=== PATIENT | male | born 1935 | race Caucasian/White ===

== ENCOUNTER → 2017-10-30 | Outpatient (CLI) | payer MEDICARE, MEDICAID, SELFPAY | PROVIDERS: Visit Provider Internal Medicine | DX: Z79.01 Long term (current) use of anticoagulants (principal); Z51.81 Encounter for therapeutic drug level monitoring | CPT/HCPCS: 36415; 85610 ==

== ENCOUNTER → 2017-11-18 07:33 | Outpatient (CLI) | payer MEDICARE, MEDICAID, SELFPAY ==
[2017-11-18 08:08] LABS: Activated Partial Thrombo Time 25.3 seconds (23.6-34.0); INR 1.24 (0.9-1.1); Prothrombin Time 13.4 seconds (9.4-11.8)
[2017-11-18 08:12] LABS: Basophils % 0.8 % (0.1-2.0); Eosinophils # 0.5 K/mm3 (0.0-0.4); Eosinophils % 9.2 % (0.1-12.0); Hematocrit 34.2 % (42.0-52.0); Hemoglobin 11.2 g/dL (14.1-18.0); Lymphocytes # 1.2 K/mm3 (0.7-4.5); Lymphocytes % 24.5 K/mm3 (10-50); Mean Corpuscular HGB Conc 32.8 g/dL (31.8-35.4); Mean Corpuscular Hemoglobin 30.7 pg (27.0-31.2); Mean Corpuscular Volume 93.3 fl (80-94); Mean Platelet Volume 9.7 fl (7.4-10.4); Monocytes # 0.3 K/mm3 (0.1-1.0); Monocytes % 5.8 % (1.7-9.3); Neutrophils % 59.8 % (37.0-80.0); Platelet Count 121 K/mm3 (142-424); Red Blood Count 3.66 M/mm3 (4.60-6.20); Red Cell Distribution Width 17.5 % (11.5-17.5); White Blood Count 5.1 K/mm3 (4.8-10.8)
[2017-11-18 08:35] LABS: Anion Gap 9.5 mEq/L (5-15); Blood Urea Nitrogen 30 mg/dL (7-18); Carbon Dioxide 34 mmol/L (21.0-32.0); Chloride 101 mmol/L (98-107); Creatinine,Serum 1.15 mg/dL (0.70-1.30); Estimated Glomerular Filt Rate 61 ml/min (>60); GFR (African American) 74 ML/MIN (>60); Glucose 79 mg/dL (74-106); Potassium 4.5 mmoL/L (3.5-5.1); Sodium 140 mmol/L (136-145); Uric Acid 7.1 mg/dL (2.6-7.2)
== END ==
PROVIDERS: PCP Internal Medicine; Visit Provider Internal Medicine
DX: Z79.899 Other long term (current) drug therapy (principal); Z79.01 Long term (current) use of anticoagulants; I87.2 Venous insufficiency (chronic) (peripheral); I50.22 Chronic systolic (congestive) heart failure; Z51.81 Encounter for therapeutic drug level monitoring
CPT/HCPCS: 36415; 80048; 84550; 85025; 85610; 85730

== ENCOUNTER → 2017-12-03 11:42 | Outpatient (CLI) | payer MEDICARE, MEDICAID, SELFPAY ==
[2017-12-03 12:11] LABS: INR 1.53 (0.9-1.1); Prothrombin Time 16.6 seconds (9.4-11.8)
== END ==
PROVIDERS: PCP Internal Medicine; Visit Provider Internal Medicine
DX: Z79.01 Long term (current) use of anticoagulants (principal); Z51.81 Encounter for therapeutic drug level monitoring
CPT/HCPCS: 36415; 85610

== ENCOUNTER → 2017-12-11 09:42 | Outpatient (CLI) | payer MEDICARE, MEDICAID, SELFPAY ==
[2017-12-11 10:07] LABS: INR 2.84 (0.9-1.1)
== END ==
PROVIDERS: PCP Internal Medicine; Visit Provider Internal Medicine
DX: Z79.01 Long term (current) use of anticoagulants (principal); Z51.81 Encounter for therapeutic drug level monitoring
CPT/HCPCS: 36415; 85610

== ENCOUNTER → 2017-12-27 13:02 | Outpatient (CLI) | payer MEDICARE, MEDICAID, SELFPAY ==
[2017-12-27 13:22] LABS: INR 1.73 (0.9-1.1); Prothrombin Time 18.8 seconds (9.4-11.8)
== END ==
PROVIDERS: Visit Provider Internal Medicine
DX: Z79.01 Long term (current) use of anticoagulants (principal); Z51.81 Encounter for therapeutic drug level monitoring
CPT/HCPCS: 36415; 85610

== ENCOUNTER → 2018-01-10 14:33 | Outpatient (CLI) | payer MEDICARE, MEDICAID, SELFPAY ==
[2018-01-10 15:09] LABS: INR 1.95 (0.9-1.1); Prothrombin Time 21.2 seconds (9.4-11.8)
== END ==
PROVIDERS: Visit Provider Internal Medicine
DX: Z79.01 Long term (current) use of anticoagulants (principal); Z51.81 Encounter for therapeutic drug level monitoring
CPT/HCPCS: 36415; 85610

== ENCOUNTER → 2018-01-22 08:16 | Outpatient (CLI) | payer MEDICARE, MEDICAID, SELFPAY ==
[2018-01-22 08:42] LABS: INR 1.76 (0.9-1.1); Prothrombin Time 19.1 seconds (9.4-11.8)
== END ==
PROVIDERS: Visit Provider Internal Medicine
DX: Z79.01 Long term (current) use of anticoagulants (principal); Z51.81 Encounter for therapeutic drug level monitoring
CPT/HCPCS: 36415; 85610

== ENCOUNTER → 2018-02-03 08:17 | Outpatient (CLI) | payer MEDICARE, SELFPAY ==
[2018-02-03 09:01] LABS: INR 2.41 (0.9-1.1); Prothrombin Time 26.3 seconds (9.4-11.8)
== END ==
PROVIDERS: Visit Provider Internal Medicine
DX: Z79.01 Long term (current) use of anticoagulants (principal); Z51.81 Encounter for therapeutic drug level monitoring
CPT/HCPCS: 36415; 85610

== ENCOUNTER → 2018-02-18 14:36 | Outpatient (CLI) | payer MEDICARE, SELFPAY ==
--- NOTE | 2018-02-18 14:47 | XR_ITS ---
XR knee RT 3V HISTORY: Knee pain following injury ITS.REASON: S/P FALL WITH KNEE AND ANKLE INJURIES ORDERING PHYSICIAN: Mumtaz Lanza PATIENT AGE: 82 years FINDINGS: No fracture or dislocation. Soft tissue swelling is present in the prepatellar region consistent with contusion/hematoma. There is generalized vascular calcification and there is mild chondrocalcinosis of the lateral meniscus. Mild osteoarthritic changes are present at the patellofemoral joint and medial compartment. IMPRESSION: 1. No acute fracture. 2. Soft tissue swelling in the prepatellar region. 3. Mild osteoarthritis
--- NOTE | 2018-02-18 14:47 | XR_ITS ---
XR ankle RT min 3V HISTORY: Pain following injury ITS.REASON: S/P FALL WITH KNEE AND ANKLE INJURIES ORDERING PHYSICIAN: Mumtaz Lanza PATIENT AGE: 82 years FINDINGS: There is a minimally displaced oblique fracture involving the distal tibial with a fracture extending medially at the level the ankle joint. There is moderate overlying soft tissue swelling. IMPRESSION: Minimally displaced distal fibular fracture
== END ==
PROVIDERS: PCP Internal Medicine; Visit Provider Internal Medicine
DX: M25.561 Pain in right knee (principal); M25.571 Pain in right ankle and joints of right foot
CPT/HCPCS: 73562; 73610

== ENCOUNTER → 2018-02-27 11:16 | Outpatient (CLI) | payer MEDICARE, MEDICAID, SELFPAY ==
--- NOTE | 2018-02-27 11:41 | XR_ITS ---
XR ankle LT min 3V HISTORY: Follow-up fracture ITS.REASON: LT ankle fx/XRAY IN SPLINT ORDERING PHYSICIAN: Lamont Friedman MD PATIENT AGE: 82 years COMPARISON: 02/18/2018 FINDINGS: Study is obtained through a cast. Minimally displaced oblique distal fibular fracture once again noted with good alignment. No significant callus formation evident. Soft tissue swelling is decreased compared to the previous exam. Study is obtained through a splint IMPRESSION: Overall no change minimally displaced oblique distal fibular fracture
[2018-02-27 14:30] LABS: INR 1.97 (0.9-1.1); Prothrombin Time 21.4 seconds (9.4-11.8)
== END ==
PROVIDERS: PCP Internal Medicine; Visit Provider Orthopaedic Surgery
DX: Z79.01 Long term (current) use of anticoagulants (principal); Z51.81 Encounter for therapeutic drug level monitoring; S82.402A Unspecified fracture of shaft of left fibula, initial encounter for closed fracture
CPT/HCPCS: 36415; 73610; 85610

== ENCOUNTER 2018-03-06 10:30 | Outpatient (RCR) | payer MEDICARE, MEDICAID, SELFPAY ==
--- NOTE | 2018-02-19 10:52 | [facility]H.PTOPWND ---
Rehab Outpt Wound Evaluation Rehab OP Wound Evaluation Start: 02/19/18 10:46 Freq: Status: Active Protocol: Document 02/19/18 10:46 TRENT (Rec: 02/19/18 10:52 PHORKARMA [id number]) Electronically Signed By Ruben Mustafa, PT 02/19/18 10:46 Subjective/History History History Pt presents ~ 5 days S/P fall in his yard while gardening wioth resulting right distal fibula fx. He reports significant pain, especially with movement of the right lower leg. He also presents with significant edmea in the right lower leg. He reports hx of OA, HTN, poorly controlled DM-II with significant neuropathy, and IN x 2. Lymphedema Eval Classification of Lymphedema Secondary Lymphedema Yes Stage of Lymphedema Lymphedema stages Stage I (Pitting edema, reduces w/ elevation, no fibrosis) Pain Scale Pain Scale (0-10) 9 Affected Extremities Areas Affected by Lymphedema/Edema Right Lower Extremity Manual Lymphatic Drainage Treatment Area MLD Treatment Area Right Lower Extremity Wound Problems/Impairments Impairments Problems/Impairmments Palpation Tenderness Impaired Range of Motion Impaired Strength Impaired Endurance Impaired Gait Pattern Impaired Walking Impaired Standing Increased Edema Lymphedema Present Subjective C/O Pain Impaired Self Care/Self Management Prognosis Rehab Potential Good Clinical Impression Consistent with Diagnosis Yes Short Term Goals Number of Weeks 4 Decreased Palpation Tenderness Yes: to min Improve Gait Pattern with Assistive Yes: once clear for increased Device WB Decrease Subjective C/O Pain Yes: 05/13 Decrease Girth Measurments by (cm) Yes: by 5 cm 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
== END 2018-03-06 10:31 | disposition home or self-care (01) ==
LOC: PT 10:30
PROVIDERS: Family Provider Internal Medicine Adolescent Medicine; PCP Internal Medicine; Visit Provider Orthopaedic Surgery
DX: S82.401A Unspecified fracture of shaft of right fibula, initial encounter for closed fracture (principal)
CPT/HCPCS: 97110; 97140; 97162; 97760

== ENCOUNTER → 2018-03-19 12:26 | Outpatient (CLI) | payer MEDICARE, MEDICAID, SELFPAY ==
--- NOTE | 2018-03-19 | XR_ITS ---
XR ankle RT min 3V HISTORY: Follow-up fracture ITS.REASON: RT ANKLE FX ORDERING PHYSICIAN: Lamont Friedman MD PATIENT AGE: 82 years COMPARISON: 02/18/2018 FINDINGS: There is a cast present there is a healing nondisplaced fracture of the distal fibula. Fracture line is somewhat less distinct. IMPRESSION: Good alignment healing fracture distal fibula
== END ==
PROVIDERS: PCP Internal Medicine; Visit Provider Orthopaedic Surgery
DX: Z79.01 Long term (current) use of anticoagulants (principal); Z51.81 Encounter for therapeutic drug level monitoring
CPT/HCPCS: 73610

== ENCOUNTER 2018-04-04 11:38 | Outpatient (CLI) | payer MEDICARE, MEDICAID, SELFPAY ==
--- NOTE | 2018-04-04 11:47 | XR_ITS ---
XR ankle RT min 3V HISTORY: Follow-up fracture ITS.REASON: rt ankle fx ORDERING PHYSICIAN: Lamont Friedman MD PATIENT AGE: 82 years COMPARISON: 03/19/2018 FINDINGS: There is a healing nondisplaced fracture involving the distal aspect of the fibula oblique in nature. Fracture line is somewhat less apparent. The cast has been removed. IMPRESSION: Healing nondisplaced fracture distal fibula
[2018-04-04 14:50] LABS: Prothrombin Time 97.2 seconds (9.4-11.8)
[2018-04-04 16:20] VITALS: BP 135/69; PULSE 57; RESP 18; O2SAT 96
== END 2018-04-04 16:40 | disposition home or self-care (01) ==
LOC: RAD 11:42 → INF 15:45
PROVIDERS: PCP Internal Medicine; Visit Provider Orthopaedic Surgery
DX: Z79.01 Long term (current) use of anticoagulants (principal); Z51.81 Encounter for therapeutic drug level monitoring
CPT/HCPCS: 36415; 73610; 85610; 96372

== ENCOUNTER 2018-04-04 13:35 | Outpatient (RCR) | payer MEDICARE, SELFPAY | END 2018-04-04 15:21 | disposition home or self-care (01) | LOC: PT 13:35 | PROVIDERS: Family Provider Internal Medicine Adolescent Medicine; PCP Internal Medicine; Visit Provider Orthopaedic Surgery | DX: S82.401A Unspecified fracture of shaft of right fibula, initial encounter for closed fracture (principal) | CPT/HCPCS: 97760 ==

== ENCOUNTER → 2018-04-08 11:46 | Outpatient (CLI) | payer MEDICARE, SELFPAY ==
[2018-04-08 12:09] LABS: INR 1.17 (0.9-1.1); Prothrombin Time 12.7 seconds (9.4-11.8)
== END ==
PROVIDERS: Visit Provider Internal Medicine
DX: Z79.01 Long term (current) use of anticoagulants (principal); Z51.81 Encounter for therapeutic drug level monitoring
CPT/HCPCS: 36415; 85610

== ENCOUNTER → 2018-05-01 07:16 | Outpatient (CLI) | payer MEDICARE, SELFPAY ==
[2018-05-01 08:03] LABS: INR 2.91 (0.9-1.1); Prothrombin Time 29.1 seconds (9.4-11.8)
--- NOTE | 2018-05-01 08:14 | XR_ITS ---
XR ankle RT min 3V HISTORY: Follow-up fracture ITS.REASON: RIGHT TIBIA/FIBULA FRACTURE ORDERING PHYSICIAN: Lamont Friedman MD PATIENT AGE: 83 years Comparison: 04/04/2018 FINDINGS: There is a healing fracture oblique in nature involving the distal aspect of the fibula. The fractures 4.6 cm proximal to the tip of the fibula. The ankle mortises not widened. No other significant anomalies are evident. There is generalized vascular calcification. IMPRESSION: Healing distal fibular fracture with good alignment
== END ==
PROVIDERS: PCP Internal Medicine; Visit Provider Orthopaedic Surgery
DX: Z79.01 Long term (current) use of anticoagulants (principal); Z51.81 Encounter for therapeutic drug level monitoring
CPT/HCPCS: 36415; 73610; 85610

== ENCOUNTER → 2018-05-19 10:06 | Outpatient (CLI) | payer MEDICARE, MEDICAID, SELFPAY ==
[2018-05-19 10:30] LABS: INR 3.77 (0.9-1.1); Prothrombin Time 37.4 seconds (9.4-11.8)
== END ==
PROVIDERS: Visit Provider Internal Medicine
DX: Z79.01 Long term (current) use of anticoagulants (principal); Z51.81 Encounter for therapeutic drug level monitoring
CPT/HCPCS: 36415; 85610

== ENCOUNTER → 2018-05-29 09:47 | Outpatient (CLI) | payer MEDICARE, MEDICAID, SELFPAY ==
[2018-05-29 10:11] LABS: Prothrombin Time 13.3 seconds (9.4-11.8)
== END ==
PROVIDERS: Visit Provider Internal Medicine
DX: Z79.01 Long term (current) use of anticoagulants (principal); Z51.81 Encounter for therapeutic drug level monitoring
CPT/HCPCS: 36415; 85610

== ENCOUNTER → 2018-06-09 10:01 | Outpatient (CLI) | payer MEDICARE, MEDICAID, SELFPAY ==
[2018-06-09 10:27] LABS: INR 2.22 (0.9-1.1); Prothrombin Time 22.3 seconds (9.4-11.8)
== END ==
PROVIDERS: Visit Provider Internal Medicine
DX: Z79.01 Long term (current) use of anticoagulants (principal); Z51.81 Encounter for therapeutic drug level monitoring
CPT/HCPCS: 36415; 85610

== ENCOUNTER → 2018-06-11 17:07 | Outpatient (REF) | payer MEDICARE, MEDICAID, SELFPAY ==
[2018-06-11 17:49] LABS: Basophils % 0.4 % (0.1-2.0); Eosinophils # 0.4 K/mm3 (0.0-0.4); Eosinophils % 7.8 % (0.1-12.0); Hemoglobin 10.6 g/dL (14.1-18.0); Lymphocytes # 1.3 K/mm3 (0.7-4.5); Mean Corpuscular HGB Conc 33.3 g/dL (31.8-35.4); Mean Corpuscular Hemoglobin 32.2 pg (27.0-31.2); Mean Corpuscular Volume 96.7 fl (80-94); Mean Platelet Volume 8.9 fl (7.4-10.4); Monocytes # 0.3 K/mm3 (0.1-1.0); Monocytes % 6.1 % (1.7-9.3); Neutrophils % 59.8 % (37.0-80.0); Platelet Count 132 K/mm3 (142-424); Red Blood Count 3.31 M/mm3 (4.60-6.20); Red Cell Distribution Width 16.3 % (11.5-17.5)
[2018-06-11 18:32] LABS: Alanine Aminotransferase 46 U/L (12-78); Albumin Level 3.1 gm/dL (3.4-5.0); Albumin/Globulin Ratio 0.9 (1.1-1.8); Alkaline Phosphatase 107 U/L (46-116); Anion Gap 10.1 mEq/L (5-15); Aspartate Amino Transferase 59 U/L (15-37); Bilirubin,Total 0.3 mg/dL (0.2-1.0); Blood Urea Nitrogen 32 mg/dL (7-18); Calcium 8.5 mg/dL (8.5-10.1); Carbon Dioxide 32 mmol/L (21.0-32.0); Chloride 103 mmol/L (98-107); Cholesterol 119 mg/dL (140-200); Creatinine,Serum 1.68 mg/dL (0.70-1.30); Estimated Glomerular Filt Rate 39 ml/min (>60); GFR (African American) 48 ML/MIN (>60); Globulin 3.6 gm/dl (1.3-3.2); Glucose 287 mg/dL (74-106); HDL Cholesterol 24 mg/dL (27-67); LDL Cholesterol 43 mg/dL (0-130); Potassium 4.1 mmoL/L (3.5-5.1); Sodium 141 mmol/L (136-145); Thyroid Stimulating Hormone 2.22 uIU/ml (0.358-3.740); Total Protein,Serum 6.7 gm/dL (6.4-8.2); Triglycerides 261 mg/dL (30-200); Uric Acid 5.5 mg/dL (2.6-7.2); VLDL Cholesterol 52 mg/dL (0-40)
[2018-06-11 18:39] LABS: Hemoglobin A1C 8.1 % (0.0-7.0)
== END ==
LOC: LAB 17:07
PROVIDERS: Visit Provider Internal Medicine
DX: E11.42 Type 2 diabetes mellitus with diabetic polyneuropathy (principal); I25.10 Atherosclerotic heart disease of native coronary artery without angina pectoris; E11.59 Type 2 diabetes mellitus with other circulatory complications; I48.0 Paroxysmal atrial fibrillation; I50.22 Chronic systolic (congestive) heart failure; M10.9 Gout, unspecified; M17.0 Bilateral primary osteoarthritis of knee; B37.2 Candidiasis of skin and nail; Z79.01 Long term (current) use of anticoagulants; Z51.81 Encounter for therapeutic drug level monitoring
CPT/HCPCS: 80053; 80061; 83036; 84443; 84550; 85025

== ENCOUNTER → 2018-07-15 10:16 | Outpatient (CLI) | payer MEDICARE, MEDICAID, SELFPAY ==
[2018-07-15 10:41] LABS: INR 3.42 (0.9-1.1)
== END ==
PROVIDERS: PCP Internal Medicine; Visit Provider Internal Medicine
DX: Z79.01 Long term (current) use of anticoagulants (principal); Z51.81 Encounter for therapeutic drug level monitoring
CPT/HCPCS: 36415; 85610

== ENCOUNTER → 2018-07-24 09:43 | Outpatient (CLI) | payer MEDICARE, MEDICAID, SELFPAY ==
[2018-07-24 10:16] LABS: INR 1.99 (0.9-1.1); Prothrombin Time 20.1 seconds (9.4-11.8)
== END ==
PROVIDERS: PCP Internal Medicine; Visit Provider Internal Medicine
DX: Z51.81 Encounter for therapeutic drug level monitoring (principal); Z79.01 Long term (current) use of anticoagulants
CPT/HCPCS: 36415; 85610

== ENCOUNTER → 2018-08-14 09:50 | Outpatient (CLI) | payer MEDICARE, MEDICAID, SELFPAY ==
[2018-08-14 11:10] LABS: INR 1.59 (0.9-1.1); Prothrombin Time 16.2 seconds (9.4-11.8)
== END ==
PROVIDERS: PCP Internal Medicine; Visit Provider Internal Medicine
DX: Z51.11 Encounter for antineoplastic chemotherapy (principal); Z79.01 Long term (current) use of anticoagulants
CPT/HCPCS: 36415; 85610

== ENCOUNTER → 2018-08-29 11:11 | Outpatient (CLI) | payer MEDICARE, MEDICAID, SELFPAY ==
[2018-09-06 16:20] LABS: INR 2.04 (0.9-1.1); Prothrombin Time 20.6 seconds (9.4-11.8)
== END ==
PROVIDERS: PCP Internal Medicine; Visit Provider Internal Medicine
DX: Z79.01 Long term (current) use of anticoagulants (principal)
CPT/HCPCS: 36415; 85610

== ENCOUNTER → 2018-09-24 10:02 | Outpatient (CLI) | payer MEDICARE, MEDICAID, SELFPAY ==
[2018-09-24 10:33] LABS: INR 1.61 (0.9-1.1); Prothrombin Time 16.4 seconds (9.4-11.8)
== END ==
PROVIDERS: Visit Provider Internal Medicine
DX: Z51.81 Encounter for therapeutic drug level monitoring (principal); Z79.01 Long term (current) use of anticoagulants
CPT/HCPCS: 36415; 85610

== ENCOUNTER → 2018-10-14 10:47 | Outpatient (CLI) | payer MEDICARE, MEDICAID, SELFPAY ==
[2018-10-14 11:11] LABS: Prothrombin Time 35.7 seconds (9.4-11.8)
== END ==
PROVIDERS: Visit Provider Internal Medicine
DX: Z51.81 Encounter for therapeutic drug level monitoring (principal); Z79.01 Long term (current) use of anticoagulants
CPT/HCPCS: 36415; 85610

== ENCOUNTER → 2018-10-30 11:02 | Outpatient (CLI) | payer MEDICARE, MEDICAID, SELFPAY ==
[2018-10-30 11:24] LABS: INR 2.74 (0.9-1.1); Prothrombin Time 27.4 seconds (9.4-11.8)
== END ==
PROVIDERS: Visit Provider Internal Medicine
DX: Z51.81 Encounter for therapeutic drug level monitoring (principal); Z79.01 Long term (current) use of anticoagulants
CPT/HCPCS: 36415; 85610

== ENCOUNTER 2018-11-24 13:06 | Inpatient (IN) ==
[2018-11-24 13:43] LABS: Basophils % 0.4 % (0.1-2.0); Eosinophils # 0.3 K/mm3 (0.0-0.4); Eosinophils % 3.6 % (0.1-12.0); Hematocrit 26.5 % (42.0-52.0); Hemoglobin 8.5 g/dL (14.1-18.0); Lymphocytes # 1.4 K/mm3 (0.7-4.5); Lymphocytes % 14.7 % (10-50); Mean Corpuscular Hemoglobin 30.9 pg (27.0-31.2); Mean Corpuscular Volume 96.5 fl (80-94); Mean Platelet Volume 9.6 fl (7.4-10.4); Monocytes # 0.4 K/mm3 (0.1-1.0); Monocytes % 4.5 % (1.7-9.3); Neutrophils # 7.1 K/mm3 (1.8-7.8); Neutrophils % 76.7 % (37.0-80.0); Platelet Count 148 K/mm3 (142-424); Red Blood Count 2.75 M/mm3 (4.60-6.20); Red Cell Distribution Width 16.8 % (11.5-17.5); White Blood Count 9.2 K/mm3 (4.8-10.8)
--- NOTE | 2018-11-24 13:52 | Emergency Department Note ---
ED Disposition Clinical Impression: Accelerated hypertension CHF (congestive heart failure) Qualifiers: Heart failure type: unspecified Heart failure chronicity: acute on chronic Qualified Code(s): I50.9 - Heart failure, unspecified Disposition: Admitted as Observation Condition on Discharge: Good Referrals: Mumtaz Lanza [Primary Care Provider] - Time of Disposition: 15:50 - Critical Care Critical Care Time: No Attestation: On 11/24/18, the high probability of a clinically significant, sudden or life threatening deterioration of the following system(s) required my full and direct attention, intervention and personal management. The time I documented below is in addition to time spent performing reported procedures but includes the following listed in this critical care notation. Medical Decision Making - Santosh Inquiry Pt receiving controlled substance: No Santosh was queried for this patient: No Vital Signs: 11/24/18 12:36 11/24/18 13:06 11/24/18 14:38 Temperature 98.3 F Temperature Source Oral Pulse Rate [Right Radial] 67 70 Respiratory Rate 24 20 Blood Pressure [Right Arm] 176/100 H 195/100 H Blood Pressure Mean [Right Arm] 125 131 Blood Pressure Source [Right Arm] Automatic Cuff Automatic Cuff Blood Pressure Position [Right Arm] Supine Sitting 02 Sat by Pulse Oximetry 96 98 94 L Oxygen Delivery Method Nasal Cannula Nasal Cannula Oxygen Flow Rate (LPM) 3 3 11/24/18 15:00 11/24/18 15:10 11/24/18 15:16 Temperature Temperature Source Pulse Rate [Right Radial] 71 69 71 Respiratory Rate 18 18 28 H Blood Pressure [Right Arm] 188/99 H 196/95 H 188/99 H Blood Pressure Mean [Right Arm] 128 128 128 Blood Pressure Source [Right Arm] Automatic Cuff Automatic Cuff Blood Pressure Position [Right Arm] Supine Supine Supine 02 Sat by Pulse Oximetry 97 97 97 Oxygen Delivery Method Nasal Cannula Nasal Cannula Oxygen Flow Rate (LPM) 2 3 11/24/18 15:31 Temperature Temperature Source Pulse Rate [Right Radial] 70 Respiratory Rate 18 Blood Pressure [Right Arm] 188/99 H Blood Pressure Mean [Right Arm] 128 Blood Pressure Source [Right Arm] Automatic Cuff Blood Pressure Position [Right Arm] 02 Sat by Pulse Oximetry 98 Oxygen Delivery Method Nasal Cannula Oxygen Flow Rate (LPM) 2 - Lab Data Lab Results 11/24/18 13:24: WBC 9.2, RBC 2.75 L, Hgb 8.5 L, Hct 26.5 L, MCV 96.5 H, MCH 30.9, MCHC 32.0, RDW 16.8, Plt Count 148, MPV 9.6, Neut % (Auto) 76.7, Lymph % (Auto) 14.7, [place] % (Auto) 4.5, Eos % (Auto) 3.6, Baso % (Auto) 0.4, Neut # (Auto) 7.1, Lymph # (Auto) 1.4, [place] # (Auto) 0.4, Eos # (Auto) 0.3, Baso # (Auto) 0.0 11/24/18 13:24: Sodium 142, Potassium 4.2, Chloride 105, Carbon Dioxide 30, Anion Gap 11.2, BUN 29 H, Creatinine 1.49 H, Estimated Creat Clear 57, Estimated GFR 45 L, Est GFR ( Amer) 55 L, Glucose 58 L, Calcium 8.4 L, Total Bilirubin 0.5, AST 30, ALT 26, Alkaline Phosphatase 103, Total Creatine Kinase 52, CK-MB (CK-2) 1.1, CK-MB (CK-2) Rel Index 2.1, Troponin I 0.28 H, Total Protein 7.2, Albumin 2.8 L, Globulin 4.4 H, Albumin/Globulin Ratio 0.6 L 11/24/18 13:24: Lactate 0.7 11/24/18 13:24: B-Natriuretic Peptide 1060 H 11/24/18 13:24: PT 25.4 H, INR 2.53 H 11/24/18 14:19: Stool Occult Blood Negative Result diagrams: 11/24/18 13:24 11/24/18 13:24 Orders (Tests/Meds): ED MEDICATIONS Generic Name Dose Route Start Last Admin Trade Name Freq PRN Reason Stop Dose Admin Carvedilol 6.25 mg 11/24/18 21:00 Coreg 6.25mg Tablet PO 12/24/18 20:59 BID LUANA Sodium Chloride 10 ml 11/24/18 13:30 Saline Flush 10ml Syringe IV 12/24/18 13:29 NEEDED PRN Maintain IV Site ORDERS Category Date Time Status Occult Blood,Stool Stat Lab 11/24/18 14:19 Ordered Trop I [Troponin I] Stat Lab 11/24/18 15:34 Ordered Trop I [Troponin I] Timed Lab 11/24/18 16:00 Ordered Blood Culture Stat Micro 11/24/18 13:24 Received General Adult HPI - General Chief complaint: Shortness of Breath/Dyspnea Stated complaint: shortness of air Time Seen by Provider: 11/24/18 13:51 Mode of Arrival: EMS Limitations: No Limitations Description of Symptoms (Recalled from ER Triage Doc. by RN): patient is short of air upon arrival to ed and has been for 3-4 days. states he normally wears oxygen at home at 3lpm; however he has noticed a greater dependency the last few days on his needs; further states when he lays down he has a more difficult time breathing; pt does have ble edema, however is non pitting - History of Present Illness HPI narrative: wORSENING DYSPNEA X 3 DAYS, PARTICULARLY ORTHOPNEA/PND. REPORTS BLACK STOOLS L AST WEEK FOR 5 DAYS, " IT'S CLEARED UP". NO GI UPSET, NO ANGINA - Related Data Home Medications Medication Instructions Recorded Confirmed aspirin 325 mg tablet 325 mg PO DAILY tab 02/18/18 04/04/18 atorvastatin 20 mg tablet 20 mg PO DAILY 02/18/18 04/04/18 carvedilol 25 mg tablet 25 mg PO BID 02/18/18 04/04/18 colchicine 0.6 mg capsule 0.6 mg PO BID 02/18/18 04/04/18 digoxin 125 mcg tablet 125 mcg PO DAILY 02/18/18 04/04/18 furosemide 40 mg tablet 40 mg PO DAILY 02/18/18 04/04/18 gabapentin 300 mg capsule 300 mg PO Q8H 02/18/18 04/04/18 gemfibrozil 600 mg tablet 600 mg PO QAM 02/18/18 04/04/18 glimepiride 4 mg tablet 4 mg PO QAM 02/18/18 04/04/18 insulin glargine (U-100) 100 50 unit SUB-Q BID 02/18/18 04/04/18 unit/mL (3 mL) subcutaneous pen isosorbide mononitrate ER 60 mg 60 mg PO QAM 02/18/18 04/04/18 tablet,extended release 24 hr warfarin 4 mg tablet 4 mg PO DAILY 02/18/18 04/04/18 Allergies Allergy/AdvReac Type Severity Reaction Status Date / Time No Known Allergies Allergy Verified 05/01/18 09:41 [facility] History - Hepatitis A Screen Drug use history?: No High risk sexual behaviors?: No History of sexually transmitted infection?: No Currently employed?: No Childcare worker?: No Do you have indoor plumbing?: Yes Do you have electricity?: Yes Attestation statement:: This patient has been screened for Hepatitis A risk factors. I have reviewed the patient's past medical history: Yes Medical History: Reports:: Congestive Heart Failure, Chronic Obstructive Pulmonary Disease (COPD), Diabetes Mellitus Type 2, Hyperlipidemia, Hypertension, Lung Disease, Kidney Stones Laterality Cases: Bilateral: Arthroscopy Knee Other Surgeries: Yes: Other Amputation: No Fractures: Yes - Social History Educational Level: Completed High School Smoking Status: Former smoker Alcohol Intake: never Substance Use Type: denies use Occupational Status: retired - Psychiatric History Expresses thoughts of harming self/others: None Suicide Plan Description: No Plan Family Hx:: No significant family history ROS Obtained: Yes All systems reviewed & no additional complaints - Constitutional Constitutional: Reports system reviewed and no additional complaints, except as docu, Denies chills, Denies malaise, Reports weakness - Eyes Eyes: Reports system reviewed and no additional complaints, except as docu, Denies change in vision - ENT Ears, Nose, Mouth, and Throat: Denies sore throat, Denies throat swelling - Cardiovascular Cardiovascular: Reports system reviewed and no additional complaints, except as docu, Reports dyspnea on exertion, Reports lightheadedness, Reports shortness of breath when lying down, Reports shortness of breath causing sudden awakening, Denies rapid heart rate, Denies slow heart rate - Respiratory Respiratory: Yes system reviewed and no additional complaints, except as docu, Yes chest congestion, Yes dyspnea on exertion, No coughing up blood, No pain on inspiration - Gastrointestinal Gastrointestingal: Reports: system reviewed and no additional complaints, except as docu. Denies: abdominal pain, diarrhea, nausea - Musculoskeletal Musculoskeletal: Denies muscle cramps, Denies muscle weakness, Denies numbness, Reports stiffness, Denies tingling - Integumentary/Breasts Skin/Breast: Denies rash, Reports skin swelling - Neurologic Neurologic: Reports system reviewed and no additional complaints, except as docu, Reports weakness - Hematologic/Lymphatic Henatologic/Lymphatic: Reports system reviewed and no additional complaints, except as docu, Denies easy bleeding, Denies easy bruising, Denies lymphade nopathy Physical Exam - General General appearance: alert, in distress (MILDLY DYSPNEIC) - Head Head exam: atraumatic, normocephalic, normal inspection - Eye Eye exam: Present: normal appearance, PERRL, EOMI - ENT ENT exam: Present: normal exam, normal oropharynx, mucous membranes moist, TM's normal bilaterally, normal external ear exam - Neck Neck exam: Present: normal inspection, full ROM, trachea midline. Absent: meningismus, lymphadenopathy - Chest Chest inspection: Present: normal inspection, symmetric chest wall rise. Absent: tenderness - Respiratory Respiratory exam: Present: other (RALES BILATERALLY). Absent: normal lung sounds bilaterally, wheezes - Cardiovascular Cardiovascular exam: Present: regular rate, normal rhythm. Absent: bradycardia, tachycardia, JVD - Abdominal Exam Abdominal exam: Present: soft. Absent: distention, tenderness, guarding, mass - Rectal Exam Rectal exam: Present: normal inspection, normal rectal tone, heme (-) stool. Absent: decreased rectal tone, bloody stool, fecal impaction, hemorrhoids, mass, tenderness - Extremities Exam Extremities exam: Present: normal inspection, full ROM, normal capillary refill. Absent: calf tenderness - Back Exam Back exam: Present: normal inspection. Absent: tenderness - Neurological Exam Neurological exam: Present: alert, oriented X3, CN II-XII intact, normal gait, motor sensory deficit - Psychiatric Psychiatric exam: Present: normal affect, normal mood - Skin Skin exam: Present: warm, dry, other (CHRONIC VENOUS INSUFFICIENCY). Absent: normal color
[2018-11-24 14:08] LABS: Albumin Level 2.8 gm/dL (3.4-5.0); Albumin/Globulin Ratio 0.6 (1.1-1.8); Anion Gap 11.2 mEq/L (5-15); Bilirubin,Total 0.5 mg/dL (0.2-1.0); Calcium 8.4 mg/dL (8.5-10.1); Globulin 4.4 gm/dl (1.3-3.2); Potassium 4.2 mmoL/L (3.5-5.1); Total Protein,Serum 7.2 gm/dL (6.4-8.2)
[2018-11-24 14:24] LABS: INR 2.53 (0.9-1.1); Prothrombin Time 25.4 seconds (9.4-11.8)
[2018-11-24 16:20] LABS: Microscopic, Urine URINE MICROSCOPIC (MICROSCOPIC)
[2018-11-24 16:21] LABS: Appearance,Urine CLEAR (Clear); Bilirubin,Urine Negative (Negative); Blood, Urine TRACE-I (Negative); Color,Urine YELLOW (Yellow); Glucose,Urine (UA) Negative (Negative); Ketones,Urine Negative (Negative); Leukocyte Esterase,Urine Negative (Negative); PH,Urine 6.5 (5.0-8.5); Protein,Urine 2+ (Negative); Urobilinogen,Urine 0.2 EU/dl (0.2)
[2018-11-24 17:01] LABS: Squamous Epithelial Cell,Urine Occasional #/hpf (0-5); WBC,Urine Occasional #/hpf (0-3)
--- NOTE | 2018-11-24 21:14 | History & Physical Report ---
*Admission Date: 11/24/18 <Gertrudis Abebe 11/24/18 21:34> *Chief complaint: trouble breathing <Gertrudis Abebe 11/24/18 21:34> *History of present illness: 83 yr old male with history of CAD and SAMUEL with supplemental oxygen at HS presented to ED today with complaint of difficulty breathing. He further reports black tarry stools and anshu blood in stool over the past week, with increasing shortness of breath over the past 4 days. He typically uses oxygen supplement at HS only but has been using is occasionally during the day over the past 4 days. On day of presentation he woke around 1am with severe dyspnea but denies associated pain, nausea, palpitations. Reports his edema is at baseline. ED evaluation revealed anemia with Hemoglobin around 8, CXR with evidence of early congestive heart failure, elevated troponin and BNP. Admitted with NSTEMI, CHF exacerbation, anemia. <Gertrudis Abebe 11/24/18 21:34> [facility] History I have reviewed the patient's past medical history: Yes <Gertrudis Abebe 11/24/18 21:34> Medical History: Reports:: Atherosclerotic Heart Disease, Congestive Heart Failure, Coronary Artery Disease, Diabetes Mellitus Type 2, Home Oxygen, Hyperlipidemia, Hypertension, Kidney Stones, Myocardial Infarction (x 2 in 1991, medical management), Peripheral Vascular Disease, Renal Insufficiency Denies:: Cancer, Diabetes Mellitus Type 1, MRSA <Gertrudis Abebe 11/24/18 21:34> Have you ever received a pneumonia vaccine?: Yes <Gertrudis Abebe 11/24/18 21:34> Have you received a flu vaccine this season?: Yes <Gertrudis Abebe 11/24/18 21:34> Other Medical History: Reports: Anemia, Arthritis, Cataracts <Gertrudis Abebe 11/24/18 21:34> Laterality Cases: Bilateral: Arthroscopy Knee <Gertrudis Abebe 11/24/18 21:34> Other Surgeries: Yes: Other <Gertrudis Abebe 11/24/18 21:34> Amputation: No <Gertrudis Abebe 11/24/18 21:34> Fractures: Yes (right ankle, 2018, managed by Dr Friedman) <Gertrudis Abebe 11/24/18 21:34> - *Social History Educational Level: Completed GED/General Educational Development <Gertrudis Abebe 11/24/18 21:34> Smoking Status: Former smoker <Gertrudis Abebe 11/24/18 21:34> Tobacco Type: cigarettes <Gertrudis Abebe 11/24/18 21:34> Alcohol Intake: never <Gertrudis Abebe 11/24/18 21:34> Substance Use Type: denies use <Gertrudis Abebe 11/24/18 21:34> Occupational Status: retired <Gertrudis Abebe 11/24/18 21:34> Housing: house <Gertrudis Abebe 11/24/18 21:34> Household Members: none <Gertrudis Abebe 11/24/18 21:34> Travel in the last 8 weeks: None <Gertrudis Abebe 11/24/18 21:34> Comment: is , daughter is next of kin <Gertrudis Abebe 11/24/18 21:34> - Psychiatric History Expresses thoughts of harming self/others: None <Gertrudis Abebe 11/24/18 21:34> Suicide Plan Description: No Plan <Gertrudis Abebe 11/24/18 21:34> *Family Hx:: No significant family history <Gertrudis Abebe 11/24/18 21:34> Review of Systems - Review of Systems Review of systems:: pertinent systems reviewed and negative unless documented below <Gertrudis Abebe 11/24/18 21:34> - ENT Reports abnormal hearing (chronic, wears hearing aides) <Gertrudis Abebe 11/24/18 21:34> - *Cardiovascular Reports shortness of breath, Reports leg swelling (chronic, at baseline per his report), Denies chest pain, Denies irregular heart rhythm <Gertrudis Abebe 11/24/18 21:34> - *Respiratory Reports shortness of breath, Denies chest congestion (previous history reports COPD but he denies chronic lung disease), Denies cough <Gertrudis Abebe 11/24/18 21:34> - *Gastrointestinal Reports change in stools, Reports bright, red blood in stools, Reports black, tarry stools, Denies abdominal pain, Denies heartburn, Denies difficulty swallowing <Gertrudis Abebe - 11/24/18 21:34> - *Genitourinary Denies difficulty urinating <Gertrudis Abebe - 11/24/18 21:34> - *Musculoskeletal Reports joint pain (chronic in knees, denies OTC NSAID use) <Gertrudis Abebe 11/24/18 21:34> - *Neurologic Reports weakness, Denies frequent falls, Denies memory loss, Denies numbness, Denies tingling <Gertrudis Abebe - 11/24/18 21:34> - Endocrine Comments: diabetes, on insulin, has not been monitoring recently <Gertrudis Abebe 11/24/18 21:34> Meds Home Medications Medication Instructions Recorded Confirmed Type aspirin 325 mg tablet 325 mg PO DAILY tab 02/18/18 11/24/18 History atorvastatin 20 mg tablet 20 mg PO DAILY 02/18/18 11/24/18 History carvedilol 25 mg tablet 25 mg PO BID 02/18/18 11/24/18 History colchicine 0.6 mg capsule 0.6 mg PO BID 02/18/18 11/24/18 History digoxin 125 mcg tablet 125 mcg PO DAILY 02/18/18 11/24/18 History furosemide 40 mg tablet 40 mg PO DAILY 02/18/18 11/24/18 History gabapentin 300 mg capsule 300 mg PO Q8H 02/18/18 11/24/18 History gemfibrozil 600 mg tablet 600 mg PO QAM 02/18/18 11/24/18 History glimepiride 4 mg tablet 4 mg PO M 02/18/18 11/24/18 History insulin glargine (U-100) 100 50 unit SUB-Q BID 02/18/18 11/24/18 History unit/mL (3 mL) subcutaneous pen isosorbide mononitrate ER 60 mg 60 mg PO QAM 02/18/18 11/24/18 History tablet,extended release 24 hr warfarin 4 mg tablet 4 mg PO DAILY 02/18/18 11/24/18 History <Lamont Sullivan 11/24/18 23:09> Allergies Allergy/AdvReac Type Severity Reaction Status Date / Time No Known Allergies Allergy Verified 05/01/18 09:41 <Lamont Sullivan - 11/24/18 23:09> Exam Vital signs and Labs for Last 24 Hours: Temp Pulse Resp BP Pulse Ox 98.7 F 69 20 177/80 H 98 11/24/18 21:48 11/24/18 21:48 11/24/18 21:48 11/24/18 21:48 11/24/18 22:25 Laboratory Results - last 24 hr 11/24/18 13:24: WBC 9.2, RBC 2.75 L, Hgb 8.5 L, Hct 26.5 L, MCV 96.5 H, MCH 30.9, MCHC 32.0, RDW 16.8, Plt Count 148, MPV 9.6, Neut % (Auto) 76.7, Lymph % (Auto) 14.7, [place] % (Auto) 4.5, Eos % (Auto) 3.6, Baso % (Auto) 0.4, Neut # (Auto) 7.1, Lymph # (Auto) 1.4, [place] # (Auto) 0.4, Eos # (Auto) 0.3, Baso # (Auto) 0.0 11/24/18 13:24: Sodium 142, Potassium 4.2, Chloride 105, Carbon Dioxide 30, Anion Gap 11.2, BUN 29 H, Creatinine 1.49 H, Estimated Creat Clear 57, Estimated GFR 45 L, Est GFR ( Amer) 55 L, Glucose 58 L, Calcium 8.4 L, Total Bilirubin 0.5, AST 30, ALT 26, Alkaline Phosphatase 103, Total Creatine Kinase 52, CK-MB (CK-2) 1.1, CK-MB (CK-2) Rel Index 2.1, Troponin I 0.28 H, Total Protein 7.2, Albumin 2.8 L, Globulin 4.4 H, Albumin/Globulin Ratio 0.6 L 11/24/18 13:24: Lactate 0.7 11/24/18 13:24: B-Natriuretic Peptide 1060 H 11/24/18 13:24: PT 25.4 H, INR 2.53 H 11/24/18 14:19: Stool Occult Blood Negative 11/24/18 15:55: Urine Color Yellow, Urine Appearance Clear, Urine pH 6.5, Ur Specific [place] 1.020, Urine Protein 2+, Urine Glucose (UA) Negative, Urine Ketones Negative, Urine Blood Trace-i, Urine Nitrate Negative, Urine Bilirubin Negative, Urine Urobilinogen 0.2, Ur Leukocyte Esterase Negative, Urine RBC None, Urine WBC Occasional, Ur Squamous Epith Cells Occasional, Urine Bacteria None 11/24/18 16:30: Troponin I 0.25 H 11/24/18 18:35: Blood Type A Negative, Antibody Screen Negative, Crossmatch (AHG) See Detail 11/24/18 18:40: Troponin I 0.23 H 11/24/18 18:40: Blood Type Confirm A Negative 11/24/18 20:19: POC Glucose 153 H <Lamont Sullivan - 11/24/18 23:09> Temp Pulse Resp BP Pulse Ox 98.5 F 68 18 182/82 H 99 11/24/18 20:00 11/24/18 20:00 11/24/18 20:00 11/24/18 20:00 11/24/18 20:00 Laboratory Results - last 24 hr 11/24/18 13:24: WBC 9.2, RBC 2.75 L, Hgb 8.5 L, Hct 26.5 L, MCV 96.5 H, MCH 30.9, MCHC 32.0, RDW 16.8, Plt Count 148, MPV 9.6, Neut % (Auto) 76.7, Lymph % (Auto) 14.7, [place] % (Auto) 4.5, Eos % (Auto) 3.6, Baso % (Auto) 0.4, Neut # (Auto) 7.1, Lymph # (Auto) 1.4, [place] # (Auto) 0.4, Eos # (Auto) 0.3, Baso # (Auto) 0.0 11/24/18 13:24: Sodium 142, Potassium 4.2, Chloride 105, Carbon Dioxide 30, Anion Gap 11.2, BUN 29 H, Creatinine 1.49 H, Estimated Creat Clear 57, Estimated GFR 45 L, Est GFR ( Amer) 55 L, Glucose 58 L, Calcium 8.4 L, Total Bilirubin 0.5, AST 30, ALT 26, Alkaline Phosphatase 103, Total Creatine Kinase 52, CK-MB (CK-2) 1.1, CK-MB (CK-2) Rel Index 2.1, Troponin I 0.28 H, Total Protein 7.2, Albumin 2.8 L, Globulin 4.4 H, Albumin/Globulin Ratio 0.6 L 11/24/18 13:24: Lactate 0.7 11/24/18 13:24: B-Natriuretic Peptide 1060 H 11/24/18 13:24: PT 25.4 H, INR 2.53 H 11/24/18 14:19: Stool Occult Blood Negative 11/24/18 15:55: Urine Color Yellow, Urine Appearance Clear, Urine pH 6.5, Ur Specific [place] 1.020, Urine Protein 2+, Urine Glucose (UA) Negative, Urine Ketones Negative, Urine Blood Trace-i, Urine Nitrate Negative, Urine Bilirubin Negative, Urine Urobilinogen 0.2, Ur Leukocyte Esterase Negative, Urine RBC None, Urine WBC Occasional, Ur Squamous Epith Cells Occasional, Urine Bacteria None 11/24/18 16:30: Troponin I 0.25 H 11/24/18 18:35: Blood Type A Negative, Antibody Screen Negative, Crossmatch (AHG) See Detail 11/24/18 18:40: Troponin I 0.23 H 11/24/18 18:40: Blood Type Confirm A Negative 11/24/18 20:19: POC Glucose 153 H <Gertrudis Abebe 11/24/18 21:34> I & O for Last 24 hours: Intake & Output 11/21/18 11/22/18 11/23/18 11/24/18 23:59 23:59 23:59 23:59 Intake Total 0 / 0 Balance 0 / 0 Weight 102.087 kg <Lamont Sullivan 11/24/18 23:09> Intake & Output 11/22/18 11/23/18 11/24/18 11/25/18 11:59 11:59 11:59 11:59 Weight 225 lb 1 oz <Gertrudis Abebe - 11/24/18 21:34> - Constitutional no acute distress, cooperative <Gertrudis Abebe 11/24/18 21:34> - *Routine HEENT Exam Head: Present: normocephalic, atraumatic <Gertrudis Abebe - 11/24/18 21:34> Eye: Present: conjunctivae pink <Gertrudis Abebe - 11/24/18 21:34> ENT: Present: mucous membranes moist (dentures) <[facility] 11/24/18 21:34> - *Routine Neck Exam Present: supple. Absent: carotid bruit, lymphadenopathy <[facility] 11/24/18 21:34> - *Routine Respiratory Exam Present: decreased breath sounds, CTA bilaterally. Absent: accessory muscle use <[facility] 11/24/18 21:34> - *Routine Cardiovascular Exam Present: RRR <[facility] 11/24/18 21:34> - *Routine Abdominal Exam Present: soft, normoactive bowel sounds. Absent: tenderness, distended, rebound <[facility] 11/24/18 21:34> - *Routine Extremities Exam Present: edema (trace, bilat, chronic streeter discoloration consistent with venous stasis), pulses intact <[facility] 11/24/18 21:34> - *Routine Skin Exam Present: intact, pallor, warm <[facility] 11/24/18 21:34> - *Routine Neurological Exam Present: oriented X3. Absent: motor deficit <[facility] 11/24/18 21:34> Assessment and Plan (1) Acute CHF (congestive heart failure) Current visit: Yes Status: Acute Qualifiers: Heart failure type: combined systolic and diastolic Qualified Code(s): I50.41 - Acute combined systolic (congestive) and diastolic (congestive) heart failure Category: Medical Code(s): I50.9 - Heart failure, unspecified (2) NSTEMI (non-ST elevated myocardial infarction) Current visit: Yes Status: Acute Category: Medical Code(s): I21.4 - Non-ST elevation (NSTEMI) myocardial infarction (3) Acute anemia Current visit: Yes Status: Acute Category: Medical Code(s): D64.9 - Anemia, unspecified (4) GIB (gastrointestinal bleeding) Current visit: Yes Status: Acute Category: Medical Code(s): K92.2 - Gastrointestinal hemorrhage, unspecified (5) CKD (chronic kidney disease) stage 3, GFR 30-59 ml/min Current visit: Yes Status: Acute Category: Medical Code(s): N18.3 - Chronic kidney disease, stage 3 (moderate) (6) Insulin dependent diabetes mellitus Current visit: Yes Status: Chronic Category: Medical Code(s): E11.9 - Type 2 diabetes mellitus without complications; Z79.4 - manager intermediate (current) use of insulin (7) Chronic anticoagulation Current visit: Yes Status: Acute Category: Medical Code(s): Z79.01 - manager intermediate (current) use of anticoagulants (8) Dyspnea Current visit: Yes Status: Acute Qualifiers: Dyspnea type: orthopnea Qualified Code(s): R06.01 - Orthopnea Category: Medical Code(s): R06.00 - Dyspnea, unspecified (9) SAMUEL on CPAP Current visit: Yes Status: Chronic Category: Medical Code(s): G47.33 - Obstructive sleep apnea (adult) (pediatric); Z99.89 - Dependence on other enabling machines and devices <Lamont Sullivan - 11/24/18 23:09> (1) Acute CHF (congestive heart failure) Current visit: Yes Status: Acute Qualifiers: Heart failure type: combined systolic and diastolic Qualified Code(s): I50.41 - Acute combined systolic (congestive) and diastolic (congestive) heart failure Category: Medical Code(s): I50.9 - Heart failure, unspecified Echo unavailable from the previous year, continue daily PO lasix, update echo and monitor (2) NSTEMI (non-ST elevated myocardial infarction) Current visit: Yes Status: Acute Category: Medical Code(s): I21.4 - Non-ST elevation (NSTEMI) myocardial infarction continue beta-gely, statin therapy oxygen support, update echo and monitor (3) Acute anemia Current visit: Yes Status: Acute Category: Medical Code(s): D64.9 - Anemia, unspecified Most recent hemoglobin 10.5, down to 8 at time of admission. plan to transfuse 1 unit of PRBC given concurrent anemia and dyspnea (4) GIB (gastrointestinal bleeding) Current visit: Yes Status: Acute Category: Medical Code(s): K92.2 - Gastrointestinal hemorrhage, unspecified He reports anshu blood in stool followed by tarry stool for several days. Occult blood negative today. Start IV PPI BID and hold anticoagulants (5) CKD (chronic kidney disease) stage 3, GFR 30-59 ml/min Current visit: Yes Status: Acute Category: Medical Code(s): N18.3 - Chronic kidney disease, stage 3 (moderate) Creatinine variable over the past year from 1.1 to 1.8, stable at this time. Will hold gemfibrozil, colchicine and monitor renal function during admission (6) Insulin dependent diabetes mellitus Current visit: Yes Status: Chronic Category: Medical Code(s): E11.9 - Type 2 diabetes mellitus without complications; Z79.4 - manager intermediate (current) use of insulin FSBS AC and HS. DC sulfonylurea due to age and CHF (7) Chronic anticoagulation Current visit: Yes Status: Acute Category: Medical Code(s): Z79.01 - prison (current) use of anticoagulants Hold due to anemia and bleeding issues. Exact indication is unknown, he denies known history of DVT or afib but has been on blood thinners "since my heart attack in 1991" (8) Dyspnea Current visit: Yes Status: Acute Qualifiers: Dyspnea type: orthopnea Qualified Code(s): R06.01 - Orthopnea Category: Medical Code(s): R06.00 - Dyspnea, unspecified Resolved with supplemental oxygen at time of exam, likely multifactoral due to anemia and NSTEMI with CHF likely due to supply/demand mismatch (9) SAMUEL on CPAP Current visit: Yes Status: Chronic Category: Medical Code(s): G47.33 - Obstructive sleep apnea (adult) (pediatric); Z99.89 - Dependence on other enabling machines and devices <Gertrudis Abebe - 11/24/18 21:10> - Assessment and plan all Dx Assessment and Plan for all problems:: I have examined the patient, reviewed labs, and agree with exam, assessment, and plan as outlined in the above note. <Lamont Sullivan - 11/24/18 23:09>
[2018-11-25 02:03] LABS: Hemoglobin 8.5 g/dL (14.1-18.0)
[2018-11-25 06:58] LABS: INR 1.86 (0.9-1.1); Prothrombin Time 18.8 seconds (9.4-11.8)
[2018-11-25 07:02] LABS: Basophils % 0.3 % (0.1-2.0); Eosinophils # 0.3 K/mm3 (0.0-0.4); Eosinophils % 4.7 % (0.1-12.0); Hematocrit 27.1 % (42.0-52.0); Hemoglobin 8.6 g/dL (14.1-18.0); Lymphocytes # 1.5 K/mm3 (0.7-4.5); Lymphocytes % 23.2 % (10-50); Mean Corpuscular HGB Conc 31.8 g/dL (31.8-35.4); Mean Corpuscular Hemoglobin 30.4 pg (27.0-31.2); Mean Corpuscular Volume 95.6 fl (80-94); Mean Platelet Volume 9.3 fl (7.4-10.4); Monocytes # 0.3 K/mm3 (0.1-1.0); Monocytes % 5.3 % (1.7-9.3); Neutrophils # 4.2 K/mm3 (1.8-7.8); Neutrophils % 66.5 % (37.0-80.0); Platelet Count 136 K/mm3 (142-424); Red Blood Count 2.83 M/mm3 (4.60-6.20); Red Cell Distribution Width 17.4 % (11.5-17.5); White Blood Count 6.3 K/mm3 (4.8-10.8)
[2018-11-25 07:15] LABS: Calcium 8.5 mg/dL (8.5-10.1)
--- NOTE | 2018-11-25 07:36 | Pharmacy Consult Notes ---
[facility] Pharmacy VTE Monitoring - Patient Demographics Admission date: 11/24/18 Report Date: 11/25/18 Time: 07:36 Allergies/Adverse Reactions: Patient Allergies No Known Allergies Allergy (Verified 05/01/18 09:41) Height: 1.93 m Weight: 102.087 kg Patient Problems: Current Active Problems Accelerated hypertension (Acute) CHF (congestive heart failure) (Acute) Acute CHF (congestive heart failure) (Acute) NSTEMI (non-ST elevated myocardial infarction) (Acute) Acute anemia (Acute) GIB (gastrointestinal bleeding) (Acute) CKD (chronic kidney disease) stage 3, GFR 30-59 ml/min (Acute) Insulin dependent diabetes mellitus (Chronic) Chronic anticoagulation (Acute) Dyspnea (Acute) SAMUEL on CPAP (Chronic) - VTE Risk Labs: VTE Related Lab Results Hgb 8.6 g/dL (14.1-18.0) L 11/25/18 06:10 Hct 27.1 % (42.0-52.0) L 11/25/18 06:10 Plt Count 136 K/mm3 (142-424) L 11/25/18 06:10 PT 18.8 seconds (9.4-11.8) H 11/25/18 06:10 INR 1.86 (0.9-1.1) H 11/25/18 06:10 BUN 33 mg/dL (7-18) H 11/25/18 06:10 Creatinine 1.67 mg/dL (0.70-1.30) H 11/25/18 06:10 Estimated Creat Clear 50 mL/min (50-200) 11/25/18 06:10 VTE Score: 3 VTE Risk Level: Low Risk - Prophylaxis VTE Prophylaxis Ordered?: Yes Types of VTE Prophylaxis: TEDS Knee High Location of Applied Device: Bilateral Lower Extremeties - VTE Diagnosis Confirmed Treatment or plan recommended: Continue Current Treatment
--- NOTE | 2018-11-25 08:39 | Progress Note ---
Internal Medicine - PN: Subj *Date: 11/25/18 *Time: 08:45 Interval history: no acute events overnight. Stable on 2-3 L O2. received 1 U RBCs with inadequate response. good UOP with IV lasix. Remains afebrile, no cough, no further melenic stools or BRBPR, no CP. Tolerating regular diet. Troponins were stable. Exam Vital signs and Labs for Last 24 Hours: Temp Pulse Resp BP Pulse Ox 98.4 F 69 20 183/90 H 96 11/25/18 04:00 11/25/18 08:00 11/25/18 04:00 11/25/18 04:00 11/25/18 04:00 Laboratory Results - last 24 hr 11/24/18 13:24: WBC 9.2, RBC 2.75 L, Hgb 8.5 L, Hct 26.5 L, MCV 96.5 H, MCH 30.9, MCHC 32.0, RDW 16.8, Plt Count 148, MPV 9.6, Neut % (Auto) 76.7, Lymph % (Auto) 14.7, [place] % (Auto) 4.5, Eos % (Auto) 3.6, Baso % (Auto) 0.4, Neut # (Auto) 7.1, Lymph # (Auto) 1.4, [place] # (Auto) 0.4, Eos # (Auto) 0.3, Baso # (Auto) 0.0 11/24/18 13:24: Sodium 142, Potassium 4.2, Chloride 105, Carbon Dioxide 30, Anion Gap 11.2, BUN 29 H, Creatinine 1.49 H, Estimated Creat Clear 57, Estimated GFR 45 L, Est GFR ( Amer) 55 L, Glucose 58 L, Calcium 8.4 L, Total Bilirubin 0.5, AST 30, ALT 26, Alkaline Phosphatase 103, Total Creatine Kinase 52, CK-MB (CK-2) 1.1, CK-MB (CK-2) Rel Index 2.1, Troponin I 0.28 H, Total Protein 7.2, Albumin 2.8 L, Globulin 4.4 H, Albumin/Globulin Ratio 0.6 L 11/24/18 13:24: Lactate 0.7 11/24/18 13:24: B-Natriuretic Peptide 1060 H 11/24/18 13:24: PT 25.4 H, INR 2.53 H 11/24/18 14:19: Stool Occult Blood Negative 11/24/18 15:55: Urine Color Yellow, Urine Appearance Clear, Urine pH 6.5, Ur Specific [place] 1.020, Urine Protein 2+, Urine Glucose (UA) Negative, Urine Ketones Negative, Urine Blood Trace-i, Urine Nitrate Negative, Urine Bilirubin Negative, Urine Urobilinogen 0.2, Ur Leukocyte Esterase Negative, Urine RBC None, Urine WBC Occasional, Ur Squamous Epith Cells Occasional, Urine Bacteria None 11/24/18 16:30: Troponin I 0.25 H 11/24/18 18:35: Blood Type A Negative, Antibody Screen Negative, Crossmatch (AHG) See Detail 11/24/18 18:40: Troponin I 0.23 H 11/24/18 18:40: Blood Type Confirm A Negative 11/24/18 20:19: POC Glucose 153 H 11/25/18 01:55: Hgb 8.5 L, Hct 27.0 L 11/25/18 06:10: Digoxin 1.01 L 11/25/18 06:10: WBC 6.3 D, RBC 2.83 L, Hgb 8.6 L, Hct 27.1 L, MCV 95.6 H, MCH 30.4, MCHC 31.8, RDW 17.4, Plt Count 136 L, MPV 9.3, Neut % (Auto) 66.5, Lymph % (Auto) 23.2, [place] % (Auto) 5.3, Eos % (Auto) 4.7, Baso % (Auto) 0.3, Neut # (Auto) 4.2, Lymph # (Auto) 1.5, [place] # (Auto) 0.3, Eos # (Auto) 0.3, Baso # (Auto) 0.0 11/25/18 06:10: Sodium 141, Potassium 4.0, Chloride 103, Carbon Dioxide 32, Anion Gap 10.0, BUN 33 H, Creatinine 1.67 H, Estimated Creat Clear 50, Estimated GFR 40 L, Est GFR ( Amer) 48 L, Glucose 101 D, Calcium 8.5 11/25/18 06:10: PT 18.8 H, INR 1.86 H 11/25/18 06:12: POC Glucose 99 I & O for Last 24 hours: Intake & Output 11/22/18 11/23/18 11/24/18 11/25/18 23:59 23:59 23:59 23:59 Intake Total 0 / 0 0 / 0 Output Total 1050 / 1050 Balance 0 / 0 -1050 / -1050 Weight 102.087 kg 102.087 kg Narrative: - Constitutional: no acute distress, cooperative - *Routine HEENT Exam Head: Present: normocephalic, atraumatic Eye: Present: conjunctivae pink ENT: Present: mucous membranes moist (dentures) NC in place - *Routine Neck Exam Present: supple. Absent: carotid bruit, lymphadenopathy - *Routine Respiratory Exam: Present: decreased breath sounds, good airmovement with interval decrease in bibasilar crackles. No accessory muscle use - *Routine Cardiovascular Exam: Present: RRR - *Routine Abdominal Exam: Present: soft, normoactive bowel sounds. Absent: tenderness, distended, rebound - *Routine Extremities Exam: Present: edema (trace, bilat, chronic streeter discoloration consistent with venous stasis), pulses intact - *Routine Skin Exam: Present: intact, pallor, warm - *Routine Neurological Exam: Present: oriented X3. Absent: motor deficit Assessment and Plan (1) Acute CHF (congestive heart failure) Current visit: Yes Status: Acute Qualifiers: Heart failure type: combined systolic and diastolic Qualified Code(s): I50.41 - Acute combined systolic (congestive) and diastolic (congestive) heart failure Category: Medical Code(s): I50.9 - Heart failure, unspecified (2) NSTEMI (non-ST elevated myocardial infarction) Current visit: Yes Status: Resolved Category: Medical Code(s): I21.4 - Non-ST elevation (NSTEMI) myocardial infarction resolved (3) Acute anemia Current visit: Yes Status: Acute Category: Medical Code(s): D64.9 - Anemia, unspecified suspect due to slow GI bleed. No further episodes. S/p 2 U RBCs. repeat H/H in AM. asymptomatic with protonix. continue to hold warfarin. Lovenox for afib prophy. Consider outpatient EGD pending symptoms. Continue PPI. (4) GIB (gastrointestinal bleeding) Current visit: Yes Status: Acute Category: Medical Code(s): K92.2 - Gastrointestinal hemorrhage, unspecified (5) CKD (chronic kidney disease) stage 3, GFR 30-59 ml/min Current visit: Yes Status: Acute Category: Medical Code(s): N18.3 - Chronic kidney disease, stage 3 (moderate) (6) Insulin dependent diabetes mellitus Current visit: Yes Status: Chronic Category: Medical Code(s): E11.9 - Type 2 diabetes mellitus without complications; Z79.4 - care home (current) use of insulin (7) Chronic anticoagulation Current visit: Yes Status: Acute Category: Medical Code(s): Z79.01 - wastewater analyst (current) use of anticoagulants (8) Dyspnea Current visit: Yes Status: Acute Qualifiers: Dyspnea type: orthopnea Qualified Code(s): R06.01 - Orthopnea Category: Medical Code(s): R06.00 - Dyspnea, unspecified (9) SAMUEL on CPAP Current visit: Yes Status: Chronic Category: Medical Code(s): G47.33 - Obstructive sleep apnea (adult) (pediatric); Z99.89 - Dependence on other enabling machines and devices - Assessment and plan all Dx Assessment and Plan for all problems:: Pt is an 83yo M with multiple co-morbidities who presented with AoCHRF, HTN, CHF exacerbation, NSTEMI type 2, Acute Anemia likely 2/2 GI bleed due to anticoagulation. Echo pending. Clinically improving. gradual decrease in O2 requirement. No further Melenic stools. Diuresed again today. PO as tolerated. If stable in morning, transition to PO PPI and plan for possible DC. Condition remains guarded.
[2018-11-25 14:07] LABS: Hemoglobin 8.8 g/dL (14.1-18.0)
[2018-11-25 17:01] LABS: Basophils % 0.5 % (0.1-2.0); Eosinophils # 0.4 K/mm3 (0.0-0.4); Eosinophils % 4.5 % (0.1-12.0); Hematocrit 27.4 % (42.0-52.0); Hemoglobin 9.1 g/dL (14.1-18.0); Lymphocytes # 1.6 K/mm3 (0.7-4.5); Lymphocytes % 20.6 % (10-50); Mean Corpuscular HGB Conc 33.2 g/dL (31.8-35.4); Mean Corpuscular Hemoglobin 31.3 pg (27.0-31.2); Mean Corpuscular Volume 94.1 fl (80-94); Mean Platelet Volume 9.6 fl (7.4-10.4); Monocytes # 0.4 K/mm3 (0.1-1.0); Monocytes % 4.8 % (1.7-9.3); Neutrophils # 5.5 K/mm3 (1.8-7.8); Neutrophils % 69.6 % (37.0-80.0); Platelet Count 129 K/mm3 (142-424); Red Blood Count 2.92 M/mm3 (4.60-6.20); Red Cell Distribution Width 17.5 % (11.5-17.5); White Blood Count 7.9 K/mm3 (4.8-10.8)
--- NOTE | 2018-11-25 19:35 | Cardiology Report ---
PROCEDURE: 2-D M-mode and color Doppler study INDICATIONS FOR THE TEST: Chest pain COPD Heart Murmur Tobacco Smoking Palpitations Fatigue Syncope Edema+ Hypertension+Diabetes Mellitus+ Rheumatic Fever SOB+KOROMA Obesity Hyperlipidemia+ Family History HD Additional History CAD, SAMUEL, HOME O2, [place] X3, PVD,CKD PATIENT INFORMATION HEIGHT: 76 WEIGHT:225 GENDER: Male B/P:177/80 2-D/M-MODE INTERPRETATION: 2-D MEASUREMENTS OBSERVED VALUES IN CMS Right Ventricular Dimension (RVDd) 2.1 Interventricular Septum (Thickness)(IVsd) 1.4 Left Ventricular Internal Dimensions(LVIDd) 5.6 Left Ventricular Posterior Wall (Thickness)(LVPWd) 1.7 Aortic Root 4.2 Aortic Cusp Separation 2.0 Left Atrial Dimensions (LAD) 5.0 2D 1. Left atrium is moderately enlarged, left ventricle is normal size, mild concentric left ventricular hypertrophy, reduced left ventricular systolic function, visually estimated ejection fraction approximately 30-35%, there is marked hypokinesis involving mid to distal septum, anterior, apex and anteroapical wall, basal septum and inferobasal wall markedly hypokinetic. 2. The right atrium and right ventricle is normal size and contractility. 3. The aortic valve is thickened and calcified leaflet continue to display mobility. 4. The mitral and tricuspid valve leaflets are minimally thickened. 5. The pulmonic valve is poorly visualized. 6. There is small pericardial and left-sided pleural effusion seen. DOPPLER INTERROGATION: Doppler interrogation of the aortic, mitral and tricuspid valvular presence of mild aortic, moderate mitral and mild tricuspid regurgitation, tricuspid regurgitation jet velocity is inadequate for calculation of the right ventricular systolic pressure, diastolic parameters are inconclusive. CONCLUSION: 1. Moderately enlarged left atrium, normal left ventricular size, mild concentric left ventricular hypertrophy, visually estimated ejection fraction 30-35% with segmental wall motion abnormality described above, diastolic parameters are inconclusive. 2. Mild aortic, moderate mitral and mild tricuspid regurgitation 3. Small pericardial and left-sided pleural effusion seen.
[2018-11-26 07:25] LABS: Basophils % 0.6 % (0.1-2.0); Eosinophils # 0.4 K/mm3 (0.0-0.4); Eosinophils % 6.7 % (0.1-12.0); Hematocrit 26.7 % (42.0-52.0); Hemoglobin 8.8 g/dL (14.1-18.0); Lymphocytes # 1.4 K/mm3 (0.7-4.5); Lymphocytes % 23.9 % (10-50); Mean Corpuscular HGB Conc 32.8 g/dL (31.8-35.4); Mean Corpuscular Hemoglobin 30.1 pg (27.0-31.2); Mean Corpuscular Volume 91.7 fl (80-94); Mean Platelet Volume 9.4 fl (7.4-10.4); Monocytes # 0.3 K/mm3 (0.1-1.0); Monocytes % 5.7 % (1.7-9.3); Neutrophils # 3.8 K/mm3 (1.8-7.8); Neutrophils % 63.1 % (37.0-80.0); Platelet Count 126 K/mm3 (142-424); Red Blood Count 2.91 M/mm3 (4.60-6.20); Red Cell Distribution Width 17.3 % (11.5-17.5)
[2018-11-26 07:30] LABS: Calcium 8.5 mg/dL (8.5-10.1)
--- NOTE | 2018-11-26 08:25 | Discharge Summary ---
General - General Admission date:: 11/25/18 Discharge date: 11/26/18 HPI HPI: 83 yr old male with history of CAD and SAMUEL with supplemental oxygen at HS presented to ED today with complaint of difficulty breathing. He further reports black tarry stools and anshu blood in stool over the past week, with increasing shortness of breath over the past 4 days. He typically uses oxygen supplement at HS only but has been using is occasionally during the day over the past 4 days. On day of presentation he woke around 1am with severe dyspnea but denies associated pain, nausea, palpitations. Reports his edema is at baseline. ED evaluation revealed anemia with Hemoglobin around 8, CXR with evidence of early congestive heart failure, elevated troponin and BNP. Admitted with NSTEMI, CHF exacerbation, anemia. Hospital Course Hospital Course: Patient was admitted, serial counts revealed no evidence of further bleeding. He had elevated troponin levels consistent with non-STEMI, but given his significant medical problems intervention was not considered to be an option. Patient was transfused because of the symptomatic chest pain and breathlessness, although this helped his symptoms he did not have age appropriate rise in his hemoglobin. Interestingly, he had no further melena, stool guaiacs were negative and he had no further bright red blood per rectum. Echocardiogram showed significant cardiomyopathy with EF of 30%. Patient's blood thinners including aspirin were held on admission. After discussing case with the patient he felt better, and wished to be discharged home this morning. There are several medical difficulties/dilemmas with this patient: 1. Warfarin therapy: Patient has been taking this since 1989 for atrial fibrillation after his first myocardial infarction. He is at high risk for stroke with elevated chads score, but given his recent bleeding and significant comorbidity with anemia, namely a recurrent non-STEMI, I feel that warfarin or any other blood thinner represents a higher risk than benefit. Patient understands this and I have instructed him to stop warfarin therapy. 2. Chronic anemia issues-poor response to transfusion. Patient is fairly asymptomatic at this point. He does not challenge himself much with activity. I feel that his current hemoglobin is adequate for his metabolic needs. He certainly if he was a better cardiovascular candidate would deserve endoscopy to assess the source of bleeding, however in the face of stopping his warfarin and his poor ejection fraction and his desire to avoid further significant testing I will leave this up to his primary probate clerk. 3. Hypertension with cardiomyopathy-we have started cautious immediate release nifedipine here which has done a nice job for his blood pressure. We will send him home on low-dose extended release nifedipine, 30 mg daily, and he will need follow-up closely with his primary probate clerk for his blood pressure issues. 4. 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 He has home health services once monthly but these are not skilled care services. Patient is a candidate for hospice care and he is agreeable to discussing his case with hospice as I think they would give him better supportive care/safety monitoring at home and he already wishes to maintain a DNR status. Our care management folks will contact hospice before discharge. Objective Vital signs: Temp Pulse Resp BP Pulse Ox 97.7 F 73 20 148/67 H 96 11/26/18 08:00 11/26/18 08:00 11/26/18 08:00 11/26/18 08:00 11/26/18 08:00 Narrative: Patient is pleasant, talkative, very knowledgeable about his history He exam is clear, no JVD. Heart rate irregular. Flow murmur. Lungs have good air movement. Abdomen soft. He has trace ankle edema. 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 No focal neurologic deficits. Results Labs on day of discharge: Labs from last 24 hours 11/26/18 11/26/18 11/25/18 07:15 07:15 22:05 WBC 6.0 RBC 2.91 L Hgb 8.8 L Hct 26.7 L MCV 91.7 MCH 30.1 MCHC 32.8 RDW 17.3 Plt Count 126 L MPV 9.4 Neut % (Auto) 63.1 Lymph % (Auto) 23.9 [place] % (Auto) 5.7 Eos % (Auto) 6.7 Baso % (Auto) 0.6 Neut # (Auto) 3.8 Lymph # (Auto) 1.4 [place] # (Auto) 0.3 Eos # (Auto) 0.4 Baso # (Auto) 0.0 Sodium 138 Potassium 4.0 Chloride 101 Carbon Dioxide 30 Anion Gap 11.0 BUN 42 H D Creatinine 2.10 H D Estimated Creat Clear 40 Estimated GFR 30 L Est GFR ( Amer) 37 L D Glucose 175 H POC Glucose 224 H Calcium 8.5 Lactate Dehydrogenase Blood Type Antibody Screen Crossmatch ([facility]) 11/25/18 11/25/18 11/25/18 17:17 16:43 16:43 WBC 7.9 D RBC 2.92 L Hgb 9.1 L Hct 27.4 L MCV 94.1 H MCH 31.3 H MCHC 33.2 RDW 17.5 Plt Count 129 L MPV 9.6 Neut % (Auto) 69.6 Lymph % (Auto) 20.6 [place] % (Auto) 4.8 Eos % (Auto) 4.5 Baso % (Auto) 0.5 Neut # (Auto) 5.5 Lymph # (Auto) 1.6 [place] # (Auto) 0.4 Eos # (Auto) 0.4 Baso # (Auto) 0.0 Sodium Potassium Chloride Carbon Dioxide Anion Gap BUN Creatinine Estimated Creat Clear Estimated GFR Est GFR ( Amer) Glucose POC Glucose 243 H Calcium Lactate Dehydrogenase 194 Blood Type Antibody Screen Crossmatch ([facility]) 11/25/18 11/25/18 11/24/18 13:54 11:48 18:35 WBC RBC Hgb 8.8 L Hct 27.0 L MCV MCH MCHC RDW Plt Count MPV Neut % (Auto) Lymph % (Auto) [place] % (Auto) Eos % (Auto) Baso % (Auto) Neut # (Auto) Lymph # (Auto) [place] # (Auto) Eos # (Auto) Baso # (Auto) Sodium Potassium Chloride Carbon Dioxide Anion Gap BUN Creatinine Estimated Creat Clear Estimated GFR Est GFR ( Amer) Glucose POC Glucose 153 H Calcium Lactate Dehydrogenase Blood Type A Negative Antibody Screen Negative Crossmatch ([facility]) See Detail DS: Diagnosis - Discharge Diagnosis (1) Acute CHF (congestive heart failure) Status: Chronic (2) NSTEMI (non-ST elevated myocardial infarction) Status: Resolved (3) Acute anemia Status: Chronic (4) GIB (gastrointestinal bleeding) Status: Resolved (5) CKD (chronic kidney disease) stage 3, GFR 30-59 ml/min Status: Chronic (6) Insulin dependent diabetes mellitus Status: Chronic (7) Chronic anticoagulation Status: Chronic (8) Dyspnea Status: Resolved (9) SAMUEL on CPAP Status: Chronic (10) Systolic left heart failure, NYHA class 3 Status: Acute Discharge Plan - Patient Discharge Instructions ACTIVITY: Continue current activity, Limited activity DIET: continue same diet - Follow up Plan Follow up with: Mumtaz Lanza [Primary Care Provider] - 2 days Disposition: Hospice - Home Home Medications: Home Medications Medication Instructions Recorded Confirmed Type carvedilol 25 mg tablet 25 mg PO BID 02/18/18 11/24/18 History colchicine 0.6 mg capsule 0.6 mg PO DAILY 02/18/18 11/25/18 History digoxin 125 mcg tablet 125 mcg PO DAILY 02/18/18 11/24/18 History gabapentin 300 mg capsule 300 mg PO TIDP PRN 02/18/18 11/25/18 History insulin glargine (U-100) 100 50 unit SQ BID 02/18/18 11/25/18 History unit/mL (3 mL) subcutaneous pen isosorbide mononitrate ER 60 mg 60 mg PO DAILY 02/18/18 11/25/18 History tablet,extended release 24 hr Atorvastatin Calcium [Atorvastatin 40 mg PO HS 11/25/18 11/25/18 History 40mg Tab] Furosemide [Furosemide 40MG tAB] 40 mg PO BID 11/25/18 11/25/18 History Gemfibrozil 600 mg PO DAILY 11/25/18 11/25/18 History Warfarin Sodium 5 mg PO SUMOWEFRSA 11/25/18 11/25/18 History Warfarin Sodium 7.5 mg PO TUTH 11/25/18 11/25/18 History NIFEdipine [Nifedipine ER] 30 mg PO DAILY #30 tablet.er 11/26/18 Rx Prescriptions/Medication Reconciliation: New NIFEdipine [Nifedipine ER] 30 mg PO DAILY #30 tablet.er Continue carvedilol 25 mg tablet 25 mg PO BID colchicine 0.6 mg capsule 0.6 mg PO DAILY gabapentin 300 mg capsule 300 mg PO TIDP PRN PRN Reason: NERVE PAIN isosorbide mononitrate ER 60 mg tablet,extended release 24 hr 60 mg PO DAILY insulin glargine (U-100) 100 unit/mL (3 mL) subcutaneous pen 50 unit SQ BID digoxin 125 mcg tablet 125 mcg PO DAILY Furosemide [Furosemide 40MG tAB] 40 mg PO BID Atorvastatin Calcium [Atorvastatin 40mg Tab] 40 mg PO HS Discontinued Warfarin Sodium 7.5 mg PO TUTH Warfarin Sodium 5 mg PO SUMOWEFRSA Gemfibrozil 600 mg PO DAILY
== END 2018-11-26 17:34 | disposition hospice, home (50) | DRG 280 ==
LOC: ER 13:06 → 2ND 13:06
PROVIDERS: ADMIT Internal Medicine Adolescent Medicine; ATTEND Internal Medicine Adolescent Medicine
CPT/HCPCS: 36415; 71010; 71045; 80048; 80053; 80162; 81001; 82272; 82550; 82553; 82962; 83010; 83605; 83615; 83880; 84484; 85014; 85018; 85025; 85610; 86850; 87040; 93005; 93306; 94760; 94761; 99284; G0328; G0378; P9016

== ENCOUNTER → 2018-11-28 11:52 | Outpatient (CLI) | payer OTHER, MEDICARE, MEDICAID, SELFPAY ==
[2018-11-28 12:06] LABS: Basophils # 0.1 K/mm3 (0-0.2); Basophils % 0.7 % (0.1-2.0); Eosinophils # 0.5 K/mm3 (0.0-0.4); Hematocrit 27.5 % (42.0-52.0); Hemoglobin 8.9 g/dL (14.1-18.0); Lymphocytes # 1.3 K/mm3 (0.7-4.5); Lymphocytes % 18.2 % (10-50); Mean Corpuscular HGB Conc 32.2 g/dL (31.8-35.4); Mean Corpuscular Hemoglobin 29.9 pg (27.0-31.2); Mean Corpuscular Volume 92.6 fl (80-94); Mean Platelet Volume 9.5 fl (7.4-10.4); Monocytes # 0.4 K/mm3 (0.1-1.0); Monocytes % 5.6 % (1.7-9.3); Neutrophils # 4.8 K/mm3 (1.8-7.8); Neutrophils % 68.5 % (37.0-80.0); Platelet Count 134 K/mm3 (142-424); Red Blood Count 2.97 M/mm3 (4.60-6.20); Red Cell Distribution Width 17.2 % (11.5-17.5)
== END ==
PROVIDERS: Visit Provider Internal Medicine
DX: D64.9 Anemia, unspecified (principal)
CPT/HCPCS: 85025